=== PATIENT | female | born 1950 | race American Indian/Alaskan Native ===

== ENCOUNTER 2018-02-18 06:44 | Day surgery (SDC) | payer MEDICAID, MEDICARE ==
[2018-02-01 12:51] VITALS: BMI 43.9
[2018-02-18] MEDS ORDERED: DiphenhydrAMINE 50 mg/ml Inj ONE (07:01)
[2018-02-18] MEDS ORDERED: Famotidine 20mg/50ml 20 MG/50 ML BAG IVPB ONE (07:02)
[2018-02-18] MEDS ORDERED: Verapamil 2 ML ONE (07:04)
[2018-02-18] MEDS ORDERED: Lidocaine 2% PF (10 ml) Amp ONE (07:04)
[2018-02-18] MEDS ORDERED: Nitroglycerin 50mg in D5W 50 MG/250 ML BOTTLE IV ONE (07:05)
[2018-02-18] MEDS ORDERED: Iohexol 350mgl/ml 50 ML ONE (07:05)
[2018-02-18] MEDS ORDERED: Phenylephrine 10 mg/ml Inj ONE (07:05)
[2018-02-18] MEDS ORDERED: Iodixanol 320 MG/ML 200 ML BOTTLE IV ONE (07:05)
[2018-02-18] MEDS ORDERED: Iodixanol 320 MG/ML 100 ML BOTTLE IV ONE (07:05)
[2018-02-18 07:26] LABS: BASO # 0.05 K/mm3 (0.0-2.0); BASO % 0.8 % (0.0-3.0); EOS # 0.3 (0.0-0.7); EOS % 4.3 % (1.5-5.0); GRAN # 3.45 (1.4-6.5); GRAN % 55.2 % (50.0-68.0); HEMOGLOBIN 12.4 g/dL (12.0-16.0); MEAN CELL VOLUME 70.6 fl (80.0-105.0); MEAN CORPUSCULAR HEMOGLOBIN 22.1 pg (25.0-35.0); MEAN CORPUSCULAR HGB CONC 31.2 g/dl (31.0-37.0); MONO # 0.5 (0.1-0.6); MONO % 7.7 % (1.0-6.0); RBC 5.62 10^6/uL (3.5-6.1); RED CELL DISTRIBUTION WIDTH 16.2 % (11.5-14.5); WHITE BLOOD COUNT 6.3 10^3/ul (4.5-11.0)
[2018-02-18 07:31] LABS: INR 0.99; PARTIAL THROMBOPLASTIN TIME 29.8 Seconds (25.1-36.5); PROTHROMBIN TIME 11.4 SECONDS (9.4-12.5)
[2018-02-18 07:32] LABS: BLOOD UREA NITROGEN 23 mg/dL (7-21); CALCIUM 10.1 mg/dL (8.4-10.5); GFR NON-AFRICAN AMERICAN 50; HDL CHOLESTEROL 40 mg/dL (29-60)
[2018-02-18] MEDS ORDERED: Midazolam 2 MG/2 ML VIAL ONE (07:41)
[2018-02-18 07:43] LABS: LDL CHOLESTEROL 55 mg/dL (0-129)
[2018-02-18] MEDS ORDERED: Bacitracin 500 Units/gm Oint Foilpak UD TOP ONE (08:40)
[2018-02-18] MEDS ORDERED: Sodium Chloride 0.9% 1,000 ML IV SCH (08:45)
--- NOTE | 2018-02-18 08:47 | HP ---
REASON FOR ADMISSION: Left heart catheterization, possible angioplasty, abnormal stress test. BRIEF CLINICAL HISTORY: This is a 68-year-old female with past medical history significant for coronary artery disease, status post CABG, diabetes, hypertension, hyperlipidemia, three-vessel coronary artery bypass surgery in the past, admitted for left heart catheterization, possible angioplasty because of abnormal stress test. PAST MEDICAL HISTORY: Significant for diabetes, hypertension, hyperlipidemia. SOCIAL HISTORY: Denies smoking. Denies any history of alcohol abuse. CURRENT MEDICATIONS: Patient is taking Flaxseed 1000 mg daily, Coreg 12.5 mg daily, atorvastatin 10 mg daily, aspirin 81 mg daily, amlodipine 10 mg daily, potassium chloride 20 mEq daily, metformin 1 g twice a day, Mag-Ox 400 mg twice a day, glimepiride (Amaryl) 2 mg daily, vitamin D 1000 mg daily. ALLERGIES: DYE. RECENT CARDIAC WORKUP: As follows, patient had a stress test dated 01/31/2018 that showed abnormal myocardial perfusion study, partially reversible anterior apical defect suggestive of ischemia, ejection fraction 63%. In compared to the last study 01/28/ anterior apical defect appears new and inferior defect appears small current study. Ejection fraction 73% dated 02/01/2018. Patient has also had echocardiogram on 01/31/2018 that showed ejection fraction 55%, trace aortic regurgitation, mild mitral regurgitation, [id number] tricuspid regurgitation, RV systolic pressure of 28 dated 01/31/2018. REVIEW OF SYSTEMS: As per HPI. PHYSICAL EXAMINATION: VITAL SIGNS: Height of the patient 5 feet 2 inches, weight of the patient is 240 pounds, body mass index 43.9 kg/sq m. Rest of the examination as follows, temperature afebrile, heart rate 80, blood pressure 130/80. HEENT: PERRLA. Extraocular muscles intact. NECK: Supple. No carotid bruits or thyromegaly. CHEST: Clear to auscultation. HEART: S1 and S2, regular. ABDOMEN: Soft. EXTREMITIES: Clubbing and cyanosis, negative. LABORATORY DATA: Blood workup pending. IMPRESSION: A 68-year-old female with past medical history significant for coronary artery disease, three-vessels bypass, diabetes, hypertension, hyperlipidemia, abnormal stress test showing anterior apical defect, suspicious for ischemia, inferior fixed defect, ejection fraction 63%. Echocardiogram shows ejection fraction 55%, trace aortic regurgitation, mild mitral regurgitation, [id number] tricuspid regurgitation, right ventricular systolic pressure is 28. RECOMMENDATIONS: We will follow the blood workup. If his blood workup is available, we will proceed for cardiac catheterization. Risks, benefits and alternatives discussed with the patient. Patient agreed. We will proceed for cardiac catheterization. Further recommendation after cardiac catheterization We will review the blood workup when it is available. Thank you Dr. Capone/ for providing us the opportunity in taking care of the patient, Gretchen Cooper. Melissa Linder MD
[2018-02-18 09:53] VITALS: RESP 18; TEMP 98.3
[2018-02-18] MEDS ORDERED: FISH OIL PO SCH (10:00)
[2018-02-18] MEDS ORDERED: Omega-3-Acid Ethyl Esters 1 GM Cap PO SCH (10:00)
[2018-02-18] MEDS ORDERED: OMEGA PO SCH (10:00)
[2018-02-18] MEDS ORDERED: [UNRECOGNIZED DRUG - OTHER] PO SCH (10:00)
[2018-02-18] MEDS ORDERED: FLAXSEED OIL 1000 MG PO SCH ×2 (10:00)
[2018-02-18] MEDS ORDERED: FATTY ACIDS PO SCH (10:00)
--- NOTE | 2018-02-18 10:01 | CPOSTOP ---
DATE: 02/18/2018 CARDIOVASCULAR LAB POST PROCEDURE NOTE PHYSICIAN: Melissa Linder MD. ENGRAVINGS POLISHER: Lamin, dialysis biomed technician. TYPE OF ANESTHESIA: Moderate conscious sedation. Total 2 mg of Versed, 100 of fentanyl given. Periodically started 1 mg of Versed, 50 of fentanyl. PRE-PROCEDURE DIAGNOSIS: Unstable angina. PROCEDURE PERFORMED: Left heart catheterization, left internal mammary artery injection and saphenous vein graft injection. FINDINGS: [place] triple vessel disease, patent SCHROEDER, patent SVG to obtuse marginal 2. Occluded SVG to diagonal. FINAL DIAGNOSIS: Status post coronary artery bypass graft, patent 2 grafts. POST PROCEDURE CONDITION: Post procedure, the patient's condition is stable. VASCULAR ACCESS SITE: Left radial. CLOSURE DEVICE: TR Band. TOTAL RADIATION DOSE: 10,233.1 milligray unit. TOTAL FLUORO TIME: 7.5 minutes. Melissa Linder MD
[2018-02-18] MEDS ORDERED: Bacitracin 500 Units/gm Oint Foilpak UD ONE (10:58)
[2018-02-18 11:02] VITALS: BP 150/90; PULSE 64; O2SAT 98
[2018-02-18] MEDS ORDERED: Insulin Reg-LOW-Coverage SC SCH (11:30)
[2018-02-18] MEDS ORDERED: Insulin Regular 100 units/ml ONE (11:41)
--- NOTE | 2018-02-18 14:47 | CARD ---
APPROVED REPORT Date of service: 02/18/2018 EKG Measurement Heart [id number] <Conclusion> Sinus bradycardia with sinus arrhythmia Left axis deviation Inferior infarct, age undetermined Anterolateral infarct, age undetermined Abnormal ECG
--- NOTE | 2018-02-18 15:14 | CARD ---
APPROVED REPORT Date of service: 02/18/2018 Procedure(s) performed: Left Heart Catheterization SCHROEDER Angiogram SVG Angiogram HISTORY The patient is a 68 year-old female with a history of : previous CA (> 7 days), most recent EF: 63%. (EF Method: RADIONUCLIDE), previous CHF, diabetes mellitus with oral treatment , chronic lung disease, previous diagnostic cath, tobacco history() : The patient is a former smoker , hypertension , previous CABG (The CABG date was 05/07/2011), dyslipidemia , cerebrovascular disease , Had abnormal stress test Anterior and apical [place].Hx of CABG in 2011 times three vessel ( SCHROEDER to distal lAD, SVG to OM! and SVG to OM2). INDICATION The indication(s) include : positive stress test. CASE TECHNIQUE The patient was brought electively to the Cardiac Catheterization Laboratory in a fasting state and was prepped and draped in a sterile manner. The left wrist was infiltrated with 2% Lidocaine subcutaneous anesthesia. A 6FR GLIDESHEATH ACCESS KIT sheath was inserted into the left radial artery without difficulty. Coronary angiography was performed using coronary diagnostic catheters. The left coronary system was accessed and visualized with a Diagnostic ,5F JL 4 CATH DXT 100 CM catheter. The right coronary system was accessed and visualized with a Diagnostic ,5 Fr JR 3.5 catheter. The left ventricle was accessed and visualized with a 5F PIGTAIL 145 CATH DXT 110 CM catheter. The left internal mammary artery was accessed and visualized with a Diagnostic ,6 Fr JUAN MIGUEL catheter. The saphenous vein graft was accessed and visualized with a Diagnostic ,5 Fr JR 3.5 catheter. The saphenous vein graft was accessed and visualized with a Diagnostic ,5 Fr JR 3.5 catheter. Left ventricular/Aortic Valve gradient assessed on pullback. Left ventriculogram was performed in GRACE projection. Closure device was deployed with a Fr TR Band (Regular) without any complications. The patient tolerated the procedure well and there were no complications associated with the procedure. Vessel Analysis The patient's coronary anatomy is right dominant. The left main coronary artery is a large size vessel with diffuse calcification noted throughout this vessel and without significant stenosis. The left main bifurcates to the left anterior descending and circumflex. The left anterior descending artery is a medium size vessel with diffuse calcification noted throughout this vessel and with significant stenosis. There is a 100% stenosis in the mid to Distalsegment. The first diagonal branch is a medium size vessel with diffuse calcification noted throughout this vessel and without significant stenosis. The circumflex artery is a medium size vessel with diffuse calcification noted throughout this vessel and with significant stenosis. There is a 100% stenosis in the distal segment. The first obtuse marginal branch is a medium size vessel with diffuse calcification noted throughout this vessel and with significant stenosis. There is a 100% stenosis in the proximal segment. The second obtuse marginal branch is a medium size vessel with diffuse calcification noted throughout this vessel and without significant stenosis. There is a 80% stenosis in the proximal segment. The right coronary artery is a medium size vessel with diffuse calcification noted throughout this vessel and without significant stenosis. There is a 20-30% stenosis in the mid segment. Distal RCA is diffusely diseased The right posterior descending artery is a medium size vessel with diffuse calcification noted throughout this vessel and without significant stenosis. The right posterolateral branch is a small size vessel with diffuse calcification noted throughout this vessel and without significant stenosis. The left internal mammary artery to the distal left anterior descending artery segment is patent But LAD is Diffusely Diseased. The saphenous vein graft to the first obtuse marginal branch segment is occluded . The saphenous vein graft to the second obtuse marginal branch segment is patent . Left Ventricle The left ventricle is normal in size with normal contractility. There was no cardiomyopathy. The left ventricular ejection fraction is estimated to be 55-60%. The left ventricular end diastolic pressure is 14-15 mmHg. There was no gradient across the aortic valve upon pullback. Conclusion [place] Two Vessel Diseased LAD/CX Mild to Moderate Diseased in RCA/ R PDA Heavy and diffuse atherosclerotic burden in coronaries. Patent SCHROEDER to LAD, but distal LAD is Diffusely diseased Patent SVG to OM2 Occluded SVG to OM1, Preserved LV Fx. Ef-55-60%, EDP-14-15 mmof Hg. Recommendations Cardiac Rehabilitation Referral Aggressive Medical TherapyCardiac Risk Reduction Program Weight Loss Reduction Program Cc; Drs. Capone/ Evelio.
== END 2018-02-18 12:10 | disposition home or self-care (01) ==
LOC: CATH 06:44
PROVIDERS: ATTEND Internal Medicine Cardiovascular Disease
DX: I25.110 Atherosclerotic heart disease of native coronary artery with unstable angina pectoris (principal); I11.0 Hypertensive heart disease with heart failure; I50.9 Heart failure, unspecified; I08.3 Combined rheumatic disorders of mitral, aortic and tricuspid valves; E11.9 Type 2 diabetes mellitus without complications; E78.5 Hyperlipidemia, unspecified; I67.9 Cerebrovascular disease, unspecified; I25.2 Old myocardial infarction; Z87.891 Personal history of nicotine dependence; Z79.84 Long term (current) use of oral hypoglycemic drugs; Z95.1 Presence of aortocoronary bypass graft
CPT/HCPCS: 36415; 80048; 80061; 82948; 85025; 85610; 85730; 86850; 86900; 93005; 93459; 99152; 99153; C1769; J1200; J1644 ×2; J2250; J2930; J3010; J7030; Q9966

== ENCOUNTER 2018-02-19 16:47 | Observation (INO) | payer MEDICARE, OTHER ==
[2018-02-19 16:47] VITALS: BMI 43.9
--- NOTE | 2018-02-19 17:23 | ED PDOC ---
Arrival/HPI - General Time Seen by Provider: 02/19/18 17:01 Historian: Patient - History of Present Illness Narrative History of Present Illness (Text): 02/19/18 17:13 68 year old female, with past medical history of hypertension, diabetes, hyperlipidemia, and triple bypass (2011), presents to the Emergency Department complaining of chest palpitations since 2pm this after noon. Patient informs non-radiating chest "fluttering" associated with no other somatic complaints. Patient reports having cardiac catheterization done yesterday by Dr. Linder without any complications. As per patient, when she was contacted from Dr. Linder's office today for a cardiac catheterization follow-up, patient expressed the following symptoms and was subsequently referred to the ED for evaluation. Patient denies any fever, chills, nausea, vomiting, diarrhea, abdominal pain, shortness of breath, cough, headache, dizziness, neck pain, back pain, leg swelling or any other complaints. Patient informs compliance with Aspirin today. PMD: Dr. Capone Unit Aide Tech: Dr. Linder Time/Duration: 1-3 hours Symptom Onset: Gradual Symptom Course: Unchanged Activities at Onset: Light Context: Home Past Medical History - Provider Review Nursing Documentation Reviewed: Yes - Infectious Disease Hx of Infectious Diseases: None - Cardiac Hx Pacemaker: No - Pulmonary Hx Respiratory Disorders: No - Neurological Hx Neurological Disorder: No - HEENT Hx HEENT Disorder: Yes Hx Glaucoma: Yes - Renal Hx Renal Disorder: No - Endocrine/Metabolic Hx Diabetes Mellitus Type 2: Yes (niddm) - Hematological/Oncological Hx Blood Transfusions: Yes Hx Blood Transfusion Reaction: Yes - Integumentary Hx Dermatological Disorder: No - Musculoskeletal/Rheumatological Hx Musculoskeletal Disorders: Yes - Gastrointestinal Hx Gastrointestinal Disorders: No - Genitourinary/Gynecological Hx Genitourinary Disorders: No - Psychiatric Hx Emotional Abuse: No Hx Physical Abuse: No Hx Substance Use: No - Surgical History Hx Coronary Artery Bypass Graft: Yes - Anesthesia Hx Anesthesia: Yes Hx Anesthesia Reactions: No Hx Malignant Hyperthermia: No - Suicidal Assessment Feels Threatened In Home Enviroment: No Family/Social History - Physician Review Nursing Documentation Reviewed: Yes Family/Social History: No Known Family HX Smoking Status: Never Smoked Hx Alcohol Use: No Hx Substance Use: No Allergies/Home Meds Allergies/Adverse Reactions: Allergies ivp dye Allergy (Uncoded 01/23/15 17:15) URTICARIA Home Medications: Home Meds Medication Instructions Recorded Confirmed Atorvastatin [Lipitor] 10 mg PO DIN 02/02/14 02/18/18 Metformin HCl [Metformin] 1,000 mg PO BID 02/02/14 02/18/18 amLODIPine [Norvasc] 10 mg PO DAILY 02/02/14 02/18/18 Aspirin [Adult Aspirin] 81 mg PO DAILY 02/01/18 02/18/18 Carvedilol [Coreg] 12.5 mg PO DAILY 02/01/18 02/18/18 Cholecalciferol [Vitamin D] 1,000 unit PO DAILY 02/01/18 02/18/18 Glimepiride [amaRYL] 2 mg PO DAILY 02/01/18 02/18/18 Magnesium Oxide [Mag-Ox] 400 mg PO DAILY 02/01/18 02/18/18 [place]-3 Fatty Acids/Fish Oil [Fish 1,000 mg PO DAILY 02/01/18 02/18/18 Oil 1,000 mg Capsule] Potassium Chloride 20 meq PO DAILY 02/01/18 02/18/18 Flaxseed Oil [Flaxseed] 1,000 mg PO DAILY 02/07/18 02/18/18 Review of Systems - Physician Review All systems were reviewed & negative as marked: Yes - Review of Systems Constitutional: absent: Fevers Respiratory: absent: SOB, Cough Cardiovascular: Palpitations. absent: GEIGER Gastrointestinal: absent: Abdominal Pain, Diarrhea, Nausea, Vomiting Musculoskeletal: absent: Back Pain, Neck Pain Neurological: absent: Headache, Dizziness Physical Exam Vital Signs Reviewed: Yes Vital Signs Temp Pulse Resp BP Pulse Ox 02/19/18 16:47 98.8 F 75 20 163/98 H 97 Temperature: Afebrile Blood Pressure: Hypertensive Pulse: Regular Respiratory Rate: Normal Appearance: Positive for: Well-Appearing, Non-Toxic, Comfortable Pain Distress: None Mental Status: Positive for: Alert and Oriented X 3 - Systems Exam Head: Present: Atraumatic, Normocephalic Pupils: Present: PERRL Extroacular Muscles: Present: EOMI Conjunctiva: Present: Normal Mouth: Present: Moist Mucous Membranes Neck: Present: Normal Range of Motion Respiratory/Chest: Present: Clear to Auscultation, Good Air Exchange. No: Respiratory Distress, Accessory Muscle Use Cardiovascular: Present: Regular Rate and Rhythm, Normal S1, S2. No: Murmurs Abdomen: No: Tenderness, Distention, Peritoneal Signs Back: Present: Normal Inspection Upper Extremity: Present: Normal Inspection, NORMAL PULSES, Capillary Refill < 2s, Other (left cath site bandage appears intact, clean and dry). No: Cyanosis, Edema Lower Extremity: Present: Normal Inspection. No: Edema Neurological: Present: GCS=15, CN II-XII Intact, Speech Normal Skin: Present: Warm, Dry, Normal Color. No: Rashes Psychiatric: Present: Alert, Oriented x 3, Normal Insight, Normal Concentration Medical Decision Making ED Course and Treatment: 02/19/18 17:24 Impression: 68 year old female presents to the Emergency Department complaining of chest palpitations. Likely post-procedure related, however given risk factors will seek labs, imaging and consultation. Unlikely ACS related given cath report w out stenting. Plan: -- Labs -- Chest X-ray -- Reassess and disposition Prior Visits: Notes and results from previous visits were reviewed. Progress Notes: 02/19/18 17:15 EKG: Ordered, reviewed, and independently interpreted the EKG. Rate :77 BPM Rhythm : NSR Interpretation : PVCs. No STEMI. 02/19/18 17:57 Pt took ASA. appreciate consult w/ Dr. Linder: No trops at this time, he will evaluate pt in AM 02/19/18 19:54 Elevated BNP, likely post procedure- Pt in NAD, No crackles, or b/l edema or sob. Pts PMD admits to Hospitalist apperciate consultation w/ Dr. Nieto: admit to her service - RAD Interpretation Narrative RAD Interpretations (Text): 02/19/18 18:56 Chest X-ray reviewed by radiologist, shows: FINDINGS: LUNGS: No active pulmonary disease. PLEURA: No significant pleural effusion identified. No pneumothorax apparent. CARDIOVASCULAR: No radiographic findings to suggest acute or significant cardiovascular disease. OSSEOUS STRUCTURES: No significant abnormalities. VISUALIZED UPPER ABDOMEN: Normal. OTHER FINDINGS: None. IMPRESSION: No active disease. No significant interval change compared to the prior examination(s). Concert Or Lecture Hall Manager: Radiologist - EKG Interpretation Interpreted by ED Physician: Yes Type: 12 lead EKG - Scribe Statement The provider has reviewed the documentation as recorded by the Scribe Taz Myers. All medical record entries made by the Scribe were at my direction and personally dictated by me. I have reviewed the chart and agree that the record accurately reflects my personal performance of the history, physical exam, medical decision making, and the department course for this patient. I have also personally directed, reviewed, and agree with the discharge instructions and disposition. Disposition/Present on Arrival - Present on Arrival Any Indicators Present on Arrival: No History of DVT/PE: No History of Uncontrolled Diabetes: No Urinary Catheter: No History of Decub. Ulcer: No History Surgical Site Infection Following: None - Disposition Have Diagnosis and Disposition been Completed?: Yes Diagnosis: Palpitations Disposition: HOSPITALIZED Disposition Time: 19:54 Patient Problems: Current Active Problems Problem Status Onset Palpitations Acute Condition: GOOD
[2018-02-19 17:43] LABS: BASO # 0.05 K/mm3 (0.0-2.0); BASO % 0.6 % (0.0-3.0); EOS % 0.2 % (1.5-5.0); GRAN # 6.22 (1.4-6.5); GRAN % 68.9 % (50.0-68.0); HEMOGLOBIN 11.8 g/dL (12.0-16.0); LYMPH # 1.8 (1.2-3.4); LYMPH % 19.9 % (22.0-35.0); MEAN CELL VOLUME 70.2 fl (80.0-105.0); MEAN CORPUSCULAR HEMOGLOBIN 22.1 pg (25.0-35.0); MEAN CORPUSCULAR HGB CONC 31.6 g/dl (31.0-37.0); MEAN PLATELET VOLUME 10.8 fl (7.0-11.0); MONO # 0.9 (0.1-0.6); MONO % 10.4 % (1.0-6.0); RBC 5.33 10^6/uL (3.5-6.1); RED CELL DISTRIBUTION WIDTH 16.3 % (11.5-14.5)
--- NOTE | 2018-02-19 18:14 | RAD ---
Date of service: 02/19/2018 HISTORY: Chest pain. COMPARISON: 03/13/2017. TECHNIQUE: Chest PA and lateral FINDINGS: LUNGS: No active pulmonary disease. PLEURA: No significant pleural effusion identified. No pneumothorax apparent. CARDIOVASCULAR: No radiographic findings to suggest acute or significant cardiovascular disease. OSSEOUS STRUCTURES: No significant abnormalities. VISUALIZED UPPER ABDOMEN: Normal. OTHER FINDINGS: None. IMPRESSION: No active disease. No significant interval change compared to the prior examination(s).
[2018-02-19 18:19] LABS: ALB/GLOB RATIO 1.2 (1.1-1.8); ALBUMIN 4.2 g/dL (3.0-4.8); ALT/SGPT 28 U/L (7-56); AST/SGOT 54 U/L (14-36); BLOOD UREA NITROGEN 30 mg/dL (7-21); CALCIUM 9.7 mg/dL (8.4-10.5); GFR NON-AFRICAN AMERICAN 55
[2018-02-19 18:20] LABS: B-TYPE NATRIURETIC PEPTIDE 830 pg/mL (0-450); TROPONIN I 0.01 ng/mL
--- NOTE | 2018-02-19 20:13 | CP.PCM.HP ---
Addendum entered and electronically signed by Vickie Alvarez DO 02/20/18 00:51: peripheral smear is not available for pt in obs status Original Note: <Vickie Alvarez - Last Filed: 02/20/18 00:36> History of Present Illness - History of Present Illness History of Present Illness: PGY-[address] Nieto CC: palpitation Ms Cooper, 68 F, who had cardiac cathertierization yesterday, with PMH chronic anemia (baseline Hb 12-14), Question sickle cell trait, CAD s/p CABG/triple bypass (2011), HTN/HLD, diabetes, presents to the Emergency Department complai sakina of chest palpitations since 2pm this after noon. Pt was sitting without prior exertion, and then she felt "fluttering" sensation of her heart without any pain, no dizziness, no diaphoresis/change of vision/nausea/lightheadedness/fall. The palpitation was non-radiating, just "fluttering", lasted only for a brief moments but comes and goes. Patient had L heart cardiac catheterization done yesterday by Dr. Linder due to abnormal stress test. The abnormal stress test showed anterior apical defect, suspicious for ischemia, EF 60s., RVSP 28. The cath was without any complications, access via L radial pulse. As per patient, when she was contacted from Dr. Linder's office today for a cardiac catheterization follow-up, patient expressed the following symptoms and was subsequently referred to the ED for evaluation. Pt took aspirin today. Pt receive benadryl for cath yesterday. Denies rash/SOB ROS - Denies fever, chills, nausea, vomiting, diarrhea, abdominal pain, shortness of breath, cough, headache, dizziness, neck pain, back pain, leg swelling, no dark stool, blood in stool, or any other complaints. In the ED, Afebril. HR normal. 163/98. RR 26. 97%RA CBC significant for Hb 11.8, MCV 70.2 CMP normal. BUN 30/Cre 1. Sugar 245. AST 54/ALT 28. trops 0.01. BNP 830. TSH normal EKG: NSR 77. PVCs. Elevated BNP, likely post procedure- Pt in NAD, No crackles, or b/l edema or sob. CXR: No active disease. No significant change compared to last year PMD: Dr. Capone Dependency Director: Dr. Linder Claim Administrator: Dr Mckeon PMH CAD s/p CABG; triple vessel bypass (2011) HTN/HLD diabetes Question sickle cell trait (Was told by 1 doctor that she has it; later was told by other doctor that she didnt have it) chronic anemia, never had colonoscopy/EGD PSH CABG (2011) Cholecysectomy L breast debridement for wound (2011) FH Mother, CHF, pancreatic cancer Dad, of massive RI @ age 62 SH Former smoker, quit in 2011 Denies drink, drug All Dye-urticaria Med Amlodipine, metformin, amaryl, coreg, asa Present on Admission - Present on Admission Any Indicators Present on Admission: No Past Patient History - Infectious Disease Hx of Infectious Diseases: None - Past Social History Smoking Status: Never Smoked - CARDIAC Hx Pacemaker: No - PULMONARY Hx Respiratory Disorders: No - NEUROLOGICAL Hx Neurological Disorder: No - HEENT Hx HEENT Problems: Yes Hx Glaucoma: Yes - RENAL Hx Chronic Kidney Disease: No - ENDOCRINE/METABOLIC Hx Diabetes Mellitus Type 2: Yes (niddm) - HEMATOLOGICAL/ONCOLOGICAL Hx Blood Transfusions: Yes Hx Blood Transfusion Reaction: Yes - INTEGUMENTARY Hx Dermatological Problems: No - MUSCULOSKELETAL/RHEUMATOLOGICAL Hx Musculoskeletal Disorders: Yes - GASTROINTESTINAL Hx Gastrointestinal Disorders: No - GENITOURINARY/GYNECOLOGICAL Hx Genitourinary Disorders: No - PSYCHIATRIC Hx Emotional Abuse: No Hx Physical Abuse: No Hx Substance Use: No - SURGICAL HISTORY Hx Coronary Artery Bypass Graft: Yes - ANESTHESIA Hx Anesthesia: Yes Hx Anesthesia Reactions: No Hx Malignant Hyperthermia: No Meds Allergies/Adverse Reactions: Allergies Allergy/AdvReac Type Severity Reaction Status Date / Time ivp dye Allergy URTICARIA Uncoded 01/23/15 17:15 Physical Exam - Constitutional Appears: No Acute Distress - Head Exam Head Exam: ATRAUMATIC, NORMAL INSPECTION, NORMOCEPHALIC - Eye Exam Eye Exam: EOMI, Normal appearance, PERRL. absent: Scleral icterus Pupil Exam: NORMAL ACCOMODATION - ENT Exam ENT Exam: Mucous Membranes Moist - Neck Exam Additional comments: No JVD, supple - Respiratory Exam Respiratory Exam: Clear to Auscultation Bilateral, NORMAL BREATHING PATTERN. absent: Decreased Breath Sounds, Rales, Rhonchi, Wheezes, Respiratory Distress, Stridor - Cardiovascular Exam Cardiovascular Exam: REGULAR RHYTHM, +S1, +S2. absent: Systolic Murmur - GI/Abdominal Exam GI & Abdominal Exam: Normal Bowel Sounds, Soft. absent: Distended, Firm, Guarding, Rigid, Tenderness - Extremities Exam Extremities exam: Positive for: pedal pulses present. Negative for: calf tenderness, pedal edema - Back Exam Back exam: absent: CVA tenderness (L), CVA tenderness (R) - Neurological Exam Neurological exam: Alert, CN II-XII Intact, Oriented x3, Reflexes Normal - Psychiatric Exam Psychiatric exam: Normal Affect, Normal Mood - Skin Skin Exam: Dry, Warm Results - Vital Signs Recent Vital Signs: Last Vital Signs Temp 98.0 F 02/19/18 19:17 Pulse 59 L 02/19/18 19:17 Resp 26 H 02/19/18 19:17 BP 164/86 H 02/19/18 19:17 Pulse Ox 97 02/19/18 19:17 - Labs Result Diagrams: 02/19/18 17:16 02/19/18 17:16 Labs: Laboratory Results - last 24 hr 02/19/18 02/19/18 02/19/18 17:16 17:16 17:16 WBC 9.0 D RBC 5.33 Hgb 11.8 L Hct 37.4 MCV 70.2 L MCH 22.1 L MCHC 31.6 RDW 16.3 H Plt Count 268 MPV 10.8 Gran % 68.9 H Lymph % (Auto) 19.9 L [place] % (Auto) 10.4 H Eos % (Auto) 0.2 L Baso % (Auto) 0.6 Gran # 6.22 Lymph # (Auto) 1.8 [place] # (Auto) 0.9 H Eos # (Auto) 0.0 Baso # (Auto) 0.05 Sodium 139 Potassium 3.9 Chloride 102 Carbon Dioxide 26 Anion Gap 15 BUN 30 H Creatinine 1.0 Est GFR ( Amer) > 60 Est GFR (Non-Af Amer) 55 Random Glucose 245 H Calcium 9.7 Magnesium 2.0 Total Bilirubin 0.3 AST 54 H D ALT 28 Alkaline Phosphatase 72 Troponin I 0.01 NT-Pro-B Natriuret Pep 830 H Total Protein 7.6 Albumin 4.2 Globulin 3.4 Albumin/Globulin Ratio 1.2 TSH 3rd Generation 1.26 Assessment & Plan - Assessment and Plan (Free Text) Plan: Ms Cooper, 68 F, who had cardiac catherterization yesterday, with PMH CAD s/p CABG/triple bypass (2011), HTN/HLD, diabetes, C/O palpitation. She was found to have microcytic anemia Palpitation likely due to anemia vs arrthythmia. Doubt ACS - telemetry - Per Dr Linder, since trop neg. No need to trend - No sig changes in EKG compared to cath day - TSH normal CAD s/p cardiac cath 02/18 Hx CABG HTN/HLD - Continue home norvasc, asa, lipitor, coreg, vit D, mag ox, lovaza Microcytic anemia - follow iron, tibc, ferritin, heme occult stool, peripheral smear - Pt endorsed that she will see a software team leader for the first time in near fu ture Diabetes - isss - a1c - diabetic education Question sickle cell trait - follow up with primary care doctor for outpatient workup s/r/d/w Dr Harrison <Gris Nieto - Last Filed: 02/20/18 01:35> Results - Vital Signs Recent Vital Signs: Last Vital Signs Temp 98.0 F 02/19/18 19:17 Pulse 74 02/19/18 23:24 Resp 20 02/19/18 23:24 BP 149/65 02/19/18 21:59 Pulse Ox 100 02/19/18 21:59 - Labs Result Diagrams: 02/19/18 17:16 02/19/18 17:16 Labs: Laboratory Results - last 24 hr 02/19/18 02/19/18 02/19/18 17:16 17:16 17:16 WBC 9.0 D RBC 5.33 Hgb 11.8 L Hct 37.4 MCV 70.2 L MCH 22.1 L MCHC 31.6 RDW 16.3 H Plt Count 268 MPV 10.8 Gran % 68.9 H Lymph % (Auto) 19.9 L [place] % (Auto) 10.4 H Eos % (Auto) 0.2 L Baso % (Auto) 0.6 Gran # 6.22 Lymph # (Auto) 1.8 [place] # (Auto) 0.9 H Eos # (Auto) 0.0 Baso # (Auto) 0.05 Sodium 139 Potassium 3.9 Chloride 102 Carbon Dioxide 26 Anion Gap 15 BUN 30 H Creatinine 1.0 Est GFR ( Amer) > 60 Est GFR (Non-Af Amer) 55 Random Glucose 245 H Calcium 9.7 Magnesium 2.0 Total Bilirubin 0.3 AST 54 H D ALT 28 Alkaline Phosphatase 72 Troponin I 0.01 NT-Pro-B Natriuret Pep 830 H Total Protein 7.6 Albumin 4.2 Globulin 3.4 Albumin/Globulin Ratio 1.2 TSH 3rd Generation 1.26 Attending/Attestation - Attestation I have personally seen and examined this patient.: Yes I have fully participated in the care of the patient.: Yes I have reviewed all pertinent clinical information: Yes Notes (Text): 02/20/18 01:32 Pt seen with the resident by the bedside. Case discussed in detail Agree with documentation,,assessment and plan of treatment.
--- NOTE | 2018-02-19 23:17 | CARD ---
APPROVED REPORT Date of service: 02/19/2018 EKG Measurement Heart [id number] <Conclusion> Sinus rhythm with premature atrial complexes and premature ventricular complexes or fusion complexes Possible Left atrial enlargement Left anterior fascicular block Inferior infarct, age undetermined Possible Anterolateral infarct, age undetermined Abnormal ECG
[2018-02-20] MEDS ORDERED: Pantoprazole 40 mg EC Tab PO SCH (06:00)
[2018-02-20 06:19] VITALS: O2SAT 98
[2018-02-20 06:24] LABS: BASO # 0.06 K/mm3 (0.0-2.0); BASO % 0.9 % (0.0-3.0); EOS # 0.2 (0.0-0.7); EOS % 2.7 % (1.5-5.0); GRAN # 3.74 (1.4-6.5); GRAN % 53.9 % (50.0-68.0); LYMPH # 2.4 (1.2-3.4); LYMPH % 34.1 % (22.0-35.0); MEAN CELL VOLUME 70.1 fl (80.0-105.0); MEAN CORPUSCULAR HEMOGLOBIN 22.7 pg (25.0-35.0); MEAN CORPUSCULAR HGB CONC 32.3 g/dl (31.0-37.0); MEAN PLATELET VOLUME 10.8 fl (7.0-11.0); MONO # 0.6 (0.1-0.6); MONO % 8.4 % (1.0-6.0); RBC 5.29 10^6/uL (3.5-6.1); RED CELL DISTRIBUTION WIDTH 16.4 % (11.5-14.5); WHITE BLOOD COUNT 6.9 10^3/ul (4.5-11.0)
[2018-02-20 06:29] LABS: IRON 49 ug/dL (45-180)
[2018-02-20 06:38] LABS: % IRON SATURATION 16 % (20-55); TOTAL IRON BINDING CAPACITY 312 ug/dL (265-497)
[2018-02-20 06:45] LABS: ALB/GLOB RATIO 1.2 (1.1-1.8); ALBUMIN 4.1 g/dL (3.0-4.8); ALT/SGPT 28 U/L (7-56); AST/SGOT 53 U/L (14-36); BLOOD UREA NITROGEN 25 mg/dL (7-21); CALCIUM 9.4 mg/dL (8.4-10.5); GFR NON-AFRICAN AMERICAN 55
[2018-02-20] MEDS: Insulin Lispro (humaLOG) LOW Coverage SC SCH ×2 (08:00→12:00)
[2018-02-20] MEDS ORDERED: Magnesium Oxide 400 mg Tab UD PO SCH (10:00)
[2018-02-20] MEDS ORDERED: Omega-3-Acid Ethyl Esters 1 GM Cap PO SCH (10:00)
[2018-02-20] MEDS ORDERED: Cholecalciferol 1,000 INTLU TAB PO SCH (10:00)
[2018-02-20 10:51] VITALS: BP 147/70
[2018-02-20 12:26] LABS: FERRITIN 32.1 ng/mL
--- NOTE | 2018-02-20 12:57 | CP.PCM.DIS ---
<Rhina Crabtree - Last Filed: 02/20/18 12:45> Provider - Provider Date of Admission: 02/19/18 19:49 Attending physician: Melissa Carrasquillo MD Primary care physician: NO PRIMARY CARE PROVIDER Consults: Dr. Kailash Capone Time Spent in preparation of Discharge (in minutes): 45 Hospital Course - Lab Results Lab Results: Most Recent Lab Values WBC 6.9 10^3/ul (4.5-11.0) D 02/20/18 05:20 RBC 5.29 10^6/uL (3.5-6.1) 02/20/18 05:20 Hgb 12.0 g/dL (12.0-16.0) 02/20/18 05:20 Hct 37.1 % (36.0-48.0) 02/20/18 05:20 MCV 70.1 fl (80.0-105.0) L 02/20/18 05:20 MCH 22.7 pg (25.0-35.0) L 02/20/18 05:20 MCHC 32.3 g/dl (31.0-37.0) 02/20/18 05:20 RDW 16.4 % (11.5-14.5) H 02/20/18 05:20 Plt Count 288 10^3/uL (120.0-450.0) 02/20/18 05:20 MPV 10.8 fl (7.0-11.0) 02/20/18 05:20 Gran % 53.9 % (50.0-68.0) 02/20/18 05:20 Lymph % (Auto) 34.1 % (22.0-35.0) 02/20/18 05:20 [place] % (Auto) 8.4 % (1.0-6.0) H 02/20/18 05:20 Eos % (Auto) 2.7 % (1.5-5.0) 02/20/18 05:20 Baso % (Auto) 0.9 % (0.0-3.0) 02/20/18 05:20 Gran # 3.74 (1.4-6.5) 02/20/18 05:20 Lymph # (Auto) 2.4 (1.2-3.4) 02/20/18 05:20 [place] # (Auto) 0.6 (0.1-0.6) 02/20/18 05:20 Eos # (Auto) 0.2 (0.0-0.7) 02/20/18 05:20 Baso # (Auto) 0.06 K/mm3 (0.0-2.0) 02/20/18 05:20 Sodium 142 mmol/L (132-148) 02/20/18 05:20 Potassium 3.9 mmol/L (3.6-5.0) 02/20/18 05:20 Chloride 105 mmol/L (98-107) 02/20/18 05:20 Carbon Dioxide 28 mmol/L (21-33) 02/20/18 05:20 Anion Gap 13 (10-20) 02/20/18 05:20 BUN 25 mg/dL (7-21) H 02/20/18 05:20 Creatinine 1.0 mg/dl (0.7-1.2) 02/20/18 05:20 Est GFR ( Amer) > 60 02/20/18 05:20 Est GFR (Non-Af Amer) 55 02/20/18 05:20 POC Glucose (mg/dL) 127 mg/dL (65-110) H 02/20/18 11:23 Random Glucose 101 mg/dL (70-110) 02/20/18 05:20 Calcium 9.4 mg/dL (8.4-10.5) 02/20/18 05:20 Phosphorus 3.3 mg/dL (2.5-4.5) 02/20/18 05:20 Magnesium 1.8 mg/dL (1.7-2.2) 02/20/18 05:20 Iron 49 ug/dL (45-180) 02/20/18 05:20 TIBC 312 ug/dL (265-497) 02/20/18 05:20 % Saturation 16 % (20-55) L 02/20/18 05:20 Ferritin 32.1 ng/mL 02/20/18 05:20 Total Bilirubin 0.3 mg/dL (0.2-1.3) 02/20/18 05:20 AST 53 U/L (14-36) H 02/20/18 05:20 ALT 28 U/L (7-56) 02/20/18 05:20 Alkaline Phosphatase 77 U/L (38-126) 02/20/18 05:20 Troponin I 0.01 ng/mL 02/19/18 17:16 NT-Pro-B Natriuret Pep 830 pg/mL (0-450) H 02/19/18 17:16 Total Protein 7.4 g/dL (5.8-8.3) 02/20/18 05:20 Albumin 4.1 g/dL (3.0-4.8) 02/20/18 05:20 Globulin 3.3 gm/dL 02/20/18 05:20 Albumin/Globulin Ratio 1.2 (1.1-1.8) 02/20/18 05:20 TSH 3rd Generation 1.26 mIU/mL (0.46-4.68) 02/19/18 17:16 - Hospital Course Hospital Course: Upon Admission Pt is a 68 F who had cardiac cathertierization yesterday, with PMH chronic anemia (baseline Hb 12-14), Question sickle cell trait, CAD s/p CABG/triple bypass (2011), HTN/HLD, diabetes, presents to the Emergency Department complaining of chest palpitations since 2pm this after noon. Pt was sitting without prior exertion, and then she felt "fluttering" sensation of her heart without any pain, no dizziness, no diaphoresis/change of vision/nausea/lightheadedness/fall. The palpitation was non-radiating, just "fluttering", lasted only for a brief moments but comes and goes. Patient had L heart cardiac catheterization done yesterday by Dr. Linder due to abnormal stress test. The abnormal stress test showed anterior apical defect, suspicious for ischemia, EF 60s., RVSP 28. The cath was without any complications, access via L radial pulse. As per patient, when she was contacted from Dr. Linder's office today for a cardiac catheterization follow-up, patient expressed the following symptoms and was subsequently referred to the ED for evaluation. Pt took aspirin today. Pt receive benadryl for cath yesterday. Denies rash/SOB Hospital Course Patient was admitted for palpitations although no recorded vital signs showed tachycardia. Patient was placed on telemetry floor to monitor for arryhtmias. Patient troponin level was negative for ACS. EKG showed sinus rhythm with premature atrial complexes and PVCs however unchanged from prior EKG before cardiac cath procedure. Patient Cxray showed no active disease. Patient's palpitations resolved. Cardiology saw patient and cleared patient. Likely palpitations was secondary due to anxiety as patient stated this is similar to prior episodes of anxiety. Patient has never been on medications for anxiety. Patient VSS stable and telemetry overnight showed no active abnormalities. Patient had elevated blood pressure measurements on her home medications so they were adjusted and patient was educated to follow up with primary medical doctor. Discharge Plan Patient is stable for discharge to as per Dr. Carrasquillo. Patient should return to hospital if symptoms worsen or recur. Patient is educated to followup with [facility] medical doctor and postie, Dr. Capone and Dr. Linder, respectively within 3-5 days of discharge from hospital. Patient is to resume all of her home medications as prescribed but not her home coreg. Coreg 25 mg by mouth once daily and Lisinopril 5mg by mouth once daily has been prescribed for 2 weeks with education to follow up for BMP bloodwork outpatient with PMD. Disclaimer: Written above is a synopsis of patient's current hospital admission. For full report refer to EMR. Discharge Exam - Head Exam Head Exam: ATRAUMATIC, NORMAL INSPECTION, NORMOCEPHALIC - Eye Exam Eye Exam: EOMI, Normal appearance. absent: Nystagmus, Scleral icterus - ENT Exam ENT Exam: Mucous Membranes Moist - Respiratory Exam Respiratory Exam: NORMAL BREATHING PATTERN. absent: Rales, Rhonchi, Wheezes, Respiratory Distress - Cardiovascular Exam Cardiovascular Exam: REGULAR RHYTHM, +S1, +S2. absent: Tachycardia - GI/Abdominal Exam GI & Abdominal Exam: Normal Bowel Sounds, Soft. absent: Distended, Firm, Guarding, Hernia, Tenderness - Extremities Exam Extremities exam: normal inspection - Neurological Exam Neurological exam: Alert, Oriented x3 - Psychiatric Exam Psychiatric exam: Normal Affect, Normal Mood - Skin Skin Exam: Intact, Normal Color Discharge Plan - Discharge Medications Prescriptions: Carvedilol [Coreg] 25 mg PO DAILY #14 tab RX: Lisinopril [Prinivil] 5 mg PO DAILY #14 tablet - Follow Up Plan Condition: GOOD Disposition: HOME/ ROUTINE Instructions: Heart Healthy Diet, Diabetes Diet , Palpitations (DC) Additional Instructions: 1. Patient is stable for discharge to home as per Dr. Carrasquillo 2. Patient will need to followup with Dr. Capone within 3-5 days of discharge from hospital for repeat basic metabolic panel because of medication changes. Patient will follow up with postie, Dr. Linder, within 3-5 days of discharge from hospital. Patient will need to followup with bellman driver regarding chronic anemia. Patient will need a screening colonoscopy for chronic anemia. 3. Patient will resume all of her home medications except her home dosage of Coreg 12.5mg. Patient will instead start taking the following 2 new medications: Coreg 25mg once by mouth daily and Lisinopril 5mg once by mouth daily. 4. Patient is educated about the plan as above and agrees. 5. Patient should return to hospital if symptoms worsen or recur. Referrals: Melissa Linder MD [Staff Provider] - Oswald Capone MD [Staff Provider] - <Melissa Carrasquillo - Last Filed: 02/20/18 14:46> Provider - Provider Date of Admission: 02/19/18 19:49 Attending physician: Melissa Carrasquillo MD Primary care physician: NO PRIMARY CARE PROVIDER Hospital Course - Lab Results Lab Results: Most Recent Lab Values WBC 6.9 10^3/ul (4.5-11.0) D 02/20/18 05:20 RBC 5.29 10^6/uL (3.5-6.1) 02/20/18 05:20 Hgb 12.0 g/dL (12.0-16.0) 02/20/18 05:20 Hct 37.1 % (36.0-48.0) 02/20/18 05:20 MCV 70.1 fl (80.0-105.0) L 02/20/18 05:20 MCH 22.7 pg (25.0-35.0) L 02/20/18 05:20 MCHC 32.3 g/dl (31.0-37.0) 02/20/18 05:20 RDW 16.4 % (11.5-14.5) H 02/20/18 05:20 Plt Count 288 10^3/uL (120.0-450.0) 02/20/18 05:20 MPV 10.8 fl (7.0-11.0) 02/20/18 05:20 Gran % 53.9 % (50.0-68.0) 02/20/18 05:20 Lymph % (Auto) 34.1 % (22.0-35.0) 02/20/18 05:20 [place] % (Auto) 8.4 % (1.0-6.0) H 02/20/18 05:20 Eos % (Auto) 2.7 % (1.5-5.0) 02/20/18 05:20 Baso % (Auto) 0.9 % (0.0-3.0) 02/20/18 05:20 Gran # 3.74 (1.4-6.5) 02/20/18 05:20 Lymph # (Auto) 2.4 (1.2-3.4) 02/20/18 05:20 [place] # (Auto) 0.6 (0.1-0.6) 02/20/18 05:20 Eos # (Auto) 0.2 (0.0-0.7) 02/20/18 05:20 Baso # (Auto) 0.06 K/mm3 (0.0-2.0) 02/20/18 05:20 Sodium 142 mmol/L (132-148) 02/20/18 05:20 Potassium 3.9 mmol/L (3.6-5.0) 02/20/18 05:20 Chloride 105 mmol/L (98-107) 02/20/18 05:20 Carbon Dioxide 28 mmol/L (21-33) 02/20/18 05:20 Anion Gap 13 (10-20) 02/20/18 05:20 BUN 25 mg/dL (7-21) H 02/20/18 05:20 Creatinine 1.0 mg/dl (0.7-1.2) 02/20/18 05:20 Est GFR ( Amer) > 60 02/20/18 05:20 Est GFR (Non-Af Amer) 55 02/20/18 05:20 POC Glucose (mg/dL) 127 mg/dL (65-110) H 02/20/18 11:23 Random Glucose 101 mg/dL (70-110) 02/20/18 05:20 Calcium 9.4 mg/dL (8.4-10.5) 02/20/18 05:20 Phosphorus 3.3 mg/dL (2.5-4.5) 02/20/18 05:20 Magnesium 1.8 mg/dL (1.7-2.2) 02/20/18 05:20 Iron 49 ug/dL (45-180) 02/20/18 05:20 TIBC 312 ug/dL (265-497) 02/20/18 05:20 % Saturation 16 % (20-55) L 02/20/18 05:20 Ferritin 32.1 ng/mL 02/20/18 05:20 Total Bilirubin 0.3 mg/dL (0.2-1.3) 02/20/18 05:20 AST 53 U/L (14-36) H 02/20/18 05:20 ALT 28 U/L (7-56) 02/20/18 05:20 Alkaline Phosphatase 77 U/L (38-126) 02/20/18 05:20 Troponin I 0.01 ng/mL 02/19/18 17:16 NT-Pro-B Natriuret Pep 830 pg/mL (0-450) H 02/19/18 17:16 Total Protein 7.4 g/dL (5.8-8.3) 02/20/18 05:20 Albumin 4.1 g/dL (3.0-4.8) 02/20/18 05:20 Globulin 3.3 gm/dL 02/20/18 05:20 Albumin/Globulin Ratio 1.2 (1.1-1.8) 02/20/18 05:20 TSH 3rd Generation 1.26 mIU/mL (0.46-4.68) 02/19/18 17:16 Attending/Attestation - Attestation I have personally seen and examined this patient.: Yes I have fully participated in the care of the patient.: Yes I have reviewed all pertinent clinical information, including history, physical exam and plan: Yes Notes (Text): 02/20/18 14:42 Medical record note made by the resident after discussion with my direction and input after the patient was personally seen and examined by me. I have reviewed the chart and agree that the record accurately reflects by personal performance of the history, physical exam, data review, and medical decision-making, in the course for the patient. I have also personally directed the plan of care. 68 F with PMH , CAD s/p CABG/triple bypass (2011), HTN/HLD, diabetes, had cardiac cathertierization yesterday was admitted yesterday with H/O palpitation ,. no chest pain, light headness, dizziness,dyspnea or syncope.Heart rate is around 70-80, she was monitored in telemetry, Tele was negative for arrythmia.Patient is asymptometic.TSH level is normal.Cardiology evaluation is appreciated. Patient coreg dose is increased to 25 mg po daily. She is ambulatory and will be discharged home.She will follow up with PCP and cardiology. Management plan was discussed in detail with patient. Education was provided.
[2018-02-20 14:01] VITALS: PULSE 67; RESP 19; TEMP 97.3
== END 2018-02-20 14:12 | disposition home or self-care (01) ==
LOC: ED 16:47 → ERH 19:49 → 2RNO 22:19
PROVIDERS: ADMIT Internal Medicine; ATTEND Internal Medicine
DX: R00.2 Palpitations (principal); I25.10 Atherosclerotic heart disease of native coronary artery without angina pectoris; I10 Essential (primary) hypertension; E11.9 Type 2 diabetes mellitus without complications; E78.5 Hyperlipidemia, unspecified; Z95.1 Presence of aortocoronary bypass graft; Z87.891 Personal history of nicotine dependence; F41.9 Anxiety disorder, unspecified; Z82.49 Family history of ischemic heart disease and other diseases of the circulatory system; Z80.0 Family history of malignant neoplasm of digestive organs
CPT/HCPCS: 36415; 71046; 80053; 82728; 82948; 83540; 83550; 83735; 83880; 84100; 84443; 84484; 85025; 93005; 99285; G0378

== ENCOUNTER → 2018-07-19 | Outpatient (CLI) | payer MEDICARE, MEDICAID | LOC: RAD 09:54 | DX: Z12.31 Encounter for screening mammogram for malignant neoplasm of breast (principal) ==